=== PATIENT | female | born 1990 | race African-American/Black ===

== ENCOUNTER 2020-11-13 10:54 | Emergency (ER) | payer SELFPAY ==
[~2020-11-13] VITALS: Ht 165.1 cm; Wt 61.4 kg
[2020-11-13 10:57] VITALS: BP 116/82
[2020-11-13] MEDS ORDERED: KETOROLAC 30 MG/1 ML IM ONE (11:30)
[2020-11-13] MEDS ORDERED: CYCLOBENZAPRINE 10 MG TABLET PO ONE (11:30)
[2020-11-13] MEDS ORDERED: CYCLOBENZAPRINE 10 MG TABLET ONE (13:52)
[2020-11-13] MEDS ORDERED: KETOROLAC 30 MG/1 ML ONE (13:52)
== END 2020-11-13 14:09 | disposition home or self-care (01) ==
LOC: ED 11:16
DX: S16.1XXA Strain of muscle, fascia and tendon at neck level, initial encounter (principal); M54.12 Radiculopathy, cervical region; X58.XXXA Exposure to other specified factors, initial encounter; Y93.89 Activity, other specified; Y92.89 Other specified places as the place of occurrence of the external cause; Y99.8 Other external cause status
CPT/HCPCS: 96372; 99283; J1885